=== PATIENT | female | born 1985 | race Hispanic/Latino ===

== ENCOUNTER 2020-09-18 09:00 | Emergency (ER) | payer OTHER, SELFPAY ==
--- NOTE | 2020-09-18 09:05 | ED.GENADULT ---
HPI - General Adult General Chief complaint: Urogenital-Female Stated complaint: possible uti/yeast infection Time Seen by Provider: 09/18/20 09:06 Source: patient Mode of arrival: ambulatory Limitations: no limitations History of Present Illness HPI narrative: 34-year-old female patient presents to the [facility] with complaints of urinary tract infections and yeast infection symptoms x1 week. Patient states she was on her period about 2 weeks ago. Patient states she is prone to yeast infections. Patient states for about a week now she has had pain with urination but denies any urgency or frequency. Patient states she has had a little bit of low back pain but denies any fevers, body aches or chills. Denies any nausea, vomiting or diarrhea. Denies any lower abdominal pain. Patient states she has also noticed some white milky discharge but denies any itching or irritation. Patient denies any concerns for STDs stating that she is sexually active but in a monogamous relationship. Related Data Home Medications Medication Instructions Recorded Confirmed dextroamphetamine-amphetamine 1 mg PO DAILY 09/18/20 09/18/20 dextroamphetamine-amphetamine 1 mg PO DAILY 09/18/20 09/18/20 Allergies Allergy/AdvReac Type Severity Reaction Status Date / Time bupropion Allergy Mild Headache Verified 09/18/20 09:17 tramadol Allergy Mild Itching Verified 09/18/20 09:17 Review of Systems Review of Systems: Narrative: CONSTITUTIONAL: Denies fever, chills, or sweats. EYES: Denies visual changes, redness, or discharge. ENT: Denies rhinorrhea, congestion, sore throat, or otalgia. CARDIOVASCULAR: Denies chest pain, palpitations, or edema. RESPIRATORY: Denies cough or dyspnea. GASTROINTESTINAL: Denies abdominal pain, nausea, vomiting, or diarrhea. GENITOURINARY: Positive dysuria and white vaginal discharge x1 week SKIN: Denies rash or itching. MUSCULOSKELETAL: Denies back pain, joint pain, or myalgia. NEUROLOGIC: Denies headache, numbness, or weakness. PSYCHIATRIC: Denies anxiety or depression. [facility] Past Medical History Medical History ADHD Anxiety Depression Oligohydramnios Peripheral neuropathy UTI (urinary tract infection) Surgical History Surgical History H/O breast biopsy Social History Social History Second hand tobacco smoke exposure: Yes Gender identity (if verbalized by the patient): Female Comments At the time of my signature I agree with nursing past medical history, surgical, social, and family history. There is no relevant family history pertinent to the presenting complaint. Exam Narrative: Exam Narrative: GENERAL: Well-appearing, well-nourished, and in no acute distress. HEAD: Normocephalic, atraumatic. EYES: PERRLA and EOMI. ENT: Nares clear, no rhinorrhea or epistaxis. Mucous membranes moist. NECK: Supple. No lymphadenopathy CHEST: Clear to auscultation. No respiratory distress. HEART: Regular rate and rhythm. No murmur heard. Normal peripheral pulses. ABDOMEN: Soft, nontender, nondistended, normal active bowel sounds. No CVA tenderness on percussion : Deferred EXTREMITIES: Normal range of motion. No edema. SKIN: Warm, dry, no rash. NEURO: No focal deficits. Alert and oriented x3. Course Vital Signs Vital signs: Vital Signs Temperature 37.2 C 09/18/20 09:10 Pulse Rate 85 09/18/20 09:10 Respiratory Rate 16 09/18/20 09:10 Blood Pressure 108/59 L 09/18/20 09:10 Pulse Oximetry 99 09/18/20 09:10 Temperature 37.2 C 09/18/20 09:10 Pulse Rate 85 09/18/20 09:10 Respiratory Rate 16 09/18/20 09:10 Blood Pressure 108/59 L 09/18/20 09:10 Pulse Oximetry 99 09/18/20 09:10 Vital signs reviewed. Medical Decision Making Differential Diagnosis Differential Diagnosis: Differential diagnosis: Uncomplicated lower UTI, u
[2020-09-18 09:10] VITALS: BP 108/59; PULSE 85; RESP 16; TEMP 37.2; O2SAT 99
== END 2020-09-18 09:27 | disposition home or self-care (01) ==
PROVIDERS: Emergency Provider Nurse Practitioner Family
DX: R30.0 Dysuria (principal); N89.8 Other specified noninflammatory disorders of vagina; B96.20 Unspecified Escherichia coli [E. coli] as the cause of diseases classified elsewhere; F90.9 Attention-deficit hyperactivity disorder, unspecified type; G62.9 Polyneuropathy, unspecified
CPT/HCPCS: 81003; 81025; 87077; 87086; 87088; 87186; 99213; G0463

== ENCOUNTER 2021-12-31 16:59 | Emergency (ER) | payer OTHER, SELFPAY ==
[2021-12-31 17:13] VITALS: BP 103/73; PULSE 68; RESP 20; TEMP 37.1; O2SAT 100
--- NOTE | 2021-12-31 17:17 | ED.FEMALEGU ---
HPI - Female Genitourinary General Chief complaint: Urogenital-Female Stated complaint: uti Time Seen by Provider: 12/31/21 17:17 Source: patient Mode of arrival: ambulatory Limitations: no limitations History of Present Illness HPI Narrative: Lakisha Mai is a 36 yo female with 3 days of burning and voiding small amounts; has not been drinking a lot of fluid as she is being treated for BV with Flagyl which is causing some nausea Related Data Home Medications Medication Instructions Recorded Confirmed dextroamphetamine-amphetamine 1 mg PO DAILY 09/18/20 09/18/20 dextroamphetamine-amphetamine 1 mg PO DAILY 09/18/20 09/18/20 Allergies Allergy/AdvReac Type Severity Reaction Status Date / Time bupropion Allergy Mild Headache Verified 09/18/20 09:17 tramadol Allergy Mild Itching Verified 09/18/20 09:17 Review of Systems Review of Systems: CONSTITUTIONAL: Denies fever, chills, sweats. EYES: Denies visual changes, redness, discharge. ENT: Denies rhinorrhea, congestion, sore throat, otalgia. CARDIOVASCULAR: Denies chest pain, palpitations, edema. RESPIRATORY: Denies dyspnea, wheezing, cough GASTROINTESTINAL: Denies abdominal pain, nausea, vomiting, diarrhea. GENITOURINARY: Has dysuria, hematuria, abnormal discharge SKIN: Denies rash or itching. NEUROLOGIC: Denies numbness, or focal weakness. PSYCHIATRIC: Denies anxiety or depression. [facility] Past Medical History Medical History ADHD Anxiety Depression Oligohydramnios Peripheral neuropathy UTI (urinary tract infection) Surgical History Surgical History H/O breast biopsy Social History Social History (Updated 12/31/21 @ 17:24 by Tanya Méndez CNP) Smoking status: Never smoker Second hand tobacco smoke exposure: Yes Alcohol intake: never Gender identity (if verbalized by the patient): Female Comments At time of signature, I agree with nursing past medical, surgical, social and family history. There is no relevant family history pertinent to the presenting complaint. Exam Narrative: GENERAL: This is a well-nourished, well-developed patient, in mild distress. HEAD: normocephalic, atraumatic. EYES:. Sclera clear/white. Vision is grossly intact. EARS: External ears normal, auditory canals clear and without drainage, TMs normal without perforation. Hearing grossly intact. NOSE: External nose normal without nasal discharge, nares without redness, no rhinorrhea. THROAT: Mucous membranes moist, NECK: Neck supple, non-tender CARDIOVASCULAR: Regular rate and rhythm without murmurs, gallops, or rubs. RESPIRATORY: Clear to auscultation. Breath sounds equal bilaterally. No wheezes, rales, or rhonchi. GASTROINTESTINAL: Abdomen soft, complaining of some lower abdominal cramping SKIN: warm, intact with no suspicious lesions or rash, good texture and turgor. NEURO: awake, alert, and oriented to person, place and time. There were no obvious focal neurologic abnormalities. Steady gait EXTREMITIES: Normal range of motion. BACK: Nontender without deformity Course Course Emergency Course: Patient here with complaints of dysuria and voiding small amounts x3 days UA dipstick done which shows 1+ blood and 1+ leukocyte Treated with Keflex and Pyridium Level of Care: Express Care Visit Vital Signs Vital signs: Vital Signs Temperature 98.7 F 12/31/21 17:13 Pulse Rate 68 12/31/21 17:13 Respiratory Rate 20 12/31/21 17:13 Blood Pressure 103/73 12/31/21 17:13 Pulse Oximetry 100 12/31/21 17:13 Temperature 98.7 F 12/31/21 17:23 Pulse Rate 68 12/31/21 17:23 Respiratory Rate 20 12/31/21 17:23 Blood Pressure 103/73 12/31/21 17:23 Pulse Oximetry 100 12/31/21 17:23 MDM - Female Genitourinary Lab Data Labs: Urine Glucose Negative Reference Range: Negati
[2021-12-31 17:23] VITALS: BP 103/73; PULSE 68; RESP 20; TEMP 37.1; O2SAT 100
== END 2021-12-31 17:45 | disposition home or self-care (01) ==
PROVIDERS: Emergency Provider Nurse Practitioner
DX: N30.01 Acute cystitis with hematuria (principal); F90.9 Attention-deficit hyperactivity disorder, unspecified type; G62.9 Polyneuropathy, unspecified
CPT/HCPCS: 81003; 87086; 99213; G0463

== ENCOUNTER 2022-07-27 18:19 | Emergency (ER) | payer OTHER, SELFPAY ==
[2022-07-27 19:06] VITALS: BP 117/67; PULSE 77; RESP 18; TEMP 36.9; O2SAT 100
--- NOTE | 2022-07-27 20:20 | ED.FEMALEGU ---
HPI - Female Genitourinary General Chief complaint: Urogenital-Female Stated complaint: UTI Time Seen by Provider: 07/27/22 20:20 Source: patient and RN notes reviewed Mode of arrival: ambulatory Limitations: no limitations History of Present Illness HPI Narrative: 36 yo female presents to the [facility] care with urgency, burning and frequency that started today. HX of UTIs. Suprapubic pressure Denies CVA tenderness. Denies fevers, abd pain, back pain. Denies N/V/D MD elicited complaint: UTI Pertinent past history: recurrent UTIs Onset (ago): hour(s) Related Data Allergies Allergy/AdvReac Type Severity Reaction Status Date / Time bupropion Allergy Mild Headache Verified 07/27/22 19:53 tramadol Allergy Mild Itching Verified 07/27/22 19:53 venlafaxine AdvReac Intermediate Headache Verified 07/27/22 20:10 Review of Systems Review of Systems: All systems reviewed & are unremarkable except as noted in HPI and below Constitutional: Constitutional: Reports no additional constitutional complaints, Denies chills and Denies fever(s) Eyes: Eyes: Reports no additional eye complaints ENT: Reports system reviewed and no additional complaints, except as documented Cardiovascular: Cardiovascular: Reports no additional cardiovascular complaints Respiratory: Respiratory: Reports no additional respiratory complaints Gastrointestinal: Gastrointestinal: Reports as per HPI Genitourinary: Genitourinary: Reports as per HPI, Reports nocturia and Reports dysuria Musculoskeletal: Musculoskeletal: Reports no additional musculoskeletal complaints Integumentary/Breasts: Skin/Breast: Reports system reviewed and no additional complaints, except as docu Neurologic: Reports system reviewed and no additional complaints, except as documented Psychiatric: Psychiatric: Reports no additional psychiatric complaints Allergic/Immunologic: Allergic/Immunologic: Reports no additional allergic/immunologic complaints [facility] Past Medical History Medical History ADHD Anxiety Depression Oligohydramnios Peripheral neuropathy UTI (urinary tract infection) Surgical History Surgical History H/O breast biopsy Social History Social History Smoking status: Never smoker Second hand tobacco smoke exposure: Yes Alcohol intake: never Gender identity (if verbalized by the patient): Female Comments At the time of my signature, I reviewed and agree with the nursing past medical, surgical, social, and family history. There is no relevant family history pertinent to the patient complaint. Exam Const: General: healthy appearing, no acute distress and alert Nutritional Appearance: well nourished Orientation/consciousness: patient oriented x3 Limitations: no limitations HENMT: Head: normal to inspection Ears: external ears normal General nose exam: Normal external nose present and Normal nares present Face and sinus: normal facial exam Mouth: Yes Normal oral and palatal mucosa present, Yes lip normal and Yes moist mucous membranes Eyes: General: appearance normal, both eyes and all related structures Pupils: Equal, round and reactive pupils present Neck: Neck: normal visual inspection, no lymphadenopathy and no meningeal signs Chest: Chest palpation & inspection: normal inspection of the chest Resp: Effort & Inspection: normal respiratory effort and no use of accessory muscles Auscultation: clear to auscultation bilaterally, no crackles, no rales, no rhonchi and no wheezes Cardio: Rate: regular rate Rhythm: regular rhythm GI: GI Palp: Yes Soft to palpation and No Tenderness to palpation present (GI) : General: Yes bladder normal to palpation Back/Spine/Pelvis: Back: no CVA tenderness Skin: General skin exam: normal color Rashes: no rashes Wounds: no wounds Neuro: Gene
== END 2022-07-27 20:36 | disposition home or self-care (01) ==
PROVIDERS: Emergency Provider Nurse Practitioner
DX: N39.0 Urinary tract infection, site not specified (principal); G62.9 Polyneuropathy, unspecified
CPT/HCPCS: 81003; 87077; 87086; 87186; 99213; G0463

== ENCOUNTER 2022-11-07 21:33 | Emergency (ER) | payer OTHER, SELFPAY ==
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
--- NOTE | ~2022-11-07 | XR_ITS ---
XR foot RT 2V 11/07/2022 22:33 INDICATION: Right foot pain PROCEDURE: 4 views right foot COMPARISON: No prior studies for comparison. FINDINGS: Fracture, dislocation or subluxation is not identified. Lisfranc joint intact. The soft tis sues appear within normal limits. No foreign bodies are identified. IMPRESSION: 1: NO ACUTE BONE OR JOINT ABNORMALITY IDENTIFIED. Reviewed, dictated and finalized at location A. TREAT WORKER
[2022-11-07 21:36] VITALS: BP 123/76; PULSE 86; RESP 18; TEMP 36.2; O2SAT 100
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
[2022-11-07] MEDS: KETOROLAC 30 MG/ML VIAL (*BKC) IM (22:29)
[2022-11-07] MEDS: ACETAMINOPHEN 500 MG TABLET 1000 MG PO (22:29)
== END 2022-11-08 00:14 | disposition home or self-care (01) ==
PROVIDERS: Emergency Provider Emergency Medicine
DX: S93.492A Sprain of other ligament of left ankle, initial encounter (principal); S96.912A Strain of unspecified muscle and tendon at ankle and foot level, left foot, initial encounter; S89.92XA Unspecified injury of left lower leg, initial encounter; S89.91XA Unspecified injury of right lower leg, initial encounter; Y04.0XXA Assault by unarmed brawl or fight, initial encounter
CPT/HCPCS: 73562; 73610; 73620; 96372; 99284; A9270; J1885